=== PATIENT | female | born 1940 | race Caucasian/White ===

== ENCOUNTER 2024-11-11 14:12 | Inpatient (IN) | payer MEDICARE ==
[~2024-11-11] VITALS: Ht 165.1 cm; Wt 63.0 kg
[2024-11-11 14:38] LABS: BASO # 0.0 10^3/uL (0.0-0.2); BASO % 0.3 % (0.0-1.0); EOS # 0.2 10^3/uL (0.0-0.5); EOS % 2.2 % (0.0-3.0); LYMPH # 2.9 10^3/uL (1.5-5.0); LYMPH % 26.7 % (24.0-44.0); MONO # 0.7 10^3/uL (0.0-0.8); MONO % 5.9 % (2.0-8.0); NEUTROPHILS # 7.1 10^3/uL (1.5-8.5); NEUTROPHILS % 64.7 % (36.0-66.0); PLATELET COUNT, AUTOMATED 338 10^3/uL (150-450)
[2024-11-11] MEDS: LIDOCAINE W/EPINEPHrine 1% 20 ML VIAL SC ONE (14:40)
[2024-11-11 14:57] LABS: ETHYL ALCOHOL (ETHANOL) < 0.003 % (0.000-0.010)
[2024-11-11 14:58] LABS: INR 1.0
[2024-11-11 14:59] LABS: ALT/SGPT 17 U/L (7.0-40); AST/SGOT 21 U/L (<34); CALCIUM LEVEL 10.0 MG/DL (8.3-10.6); CARBON DIOXIDE LEVEL 23 MMOL/L (20-31); CHLORIDE LEVEL 104 MMOL/L (98-107); CK-MB VALUE MASS 1.7 NG/ML (<3.6); CPK CREATINE PHOSPHOKINASE 66 U/L (34-145); CREATININE FOR GFR 1.89 MG/DL (0.55-1.30); GLOMERULAR FILTRATION RATE 25.9 (>32); MB/CK RELATIVE INDEX 2.57 (< OR =4); POTASSIUM SERUM 4.5 MMOL/L (3.5-5.1); SODIUM LEVEL 142 MMOL/L (136-145)
[2024-11-11 17:17] LABS: HIV 1&2 SCREEN NEGATIVE (NEGATIVE)
[2024-11-11 17:26] LABS: HEPATITIS C VIRUS ABY INDEX < 0.02 INDEX (<0.8)
[2024-11-11] MEDS ORDERED: ACET-1349 PO (19:51)
[2024-11-11] MEDS ORDERED: B-12100010 PO (19:51)
[2024-11-11] MEDS ORDERED: GABA-1171 PO ×2 (19:51)
[2024-11-11] MEDS ORDERED: MIDO2.5T3 PO (19:51)
[2024-11-11] MEDS ORDERED: MAGN500T12 PO (19:51)
[2024-11-11] MEDS ORDERED: ELIQ2.5T PO (19:51)
[2024-11-11] MEDS ORDERED: LETR2.5T2 PO (19:51)
[2024-11-11] MEDS ORDERED: EZET10TA21 PO (19:51)
[2024-11-11] MEDS ORDERED: VITA1TAB82 PO (19:51)
[2024-11-11] MEDS ORDERED: ATOR80TA59 PO (19:51)
[2024-11-11] MEDS ORDERED: SEMA2PEN SQ (19:51)
[2024-11-11] MEDS ORDERED: PHEN1TAB73 PO (19:51)
[2024-11-11] MEDS ORDERED: LORA-243 PO (19:52)
[2024-11-11] MEDS ORDERED: HOME MED LIST COMPLETE! XX SCH (19:55)
[2024-11-11] MEDS ORDERED: MAALOX 30 ML SUSP *UDC PO PRN (22:25)
[2024-11-11] MEDS ORDERED: traMADol 50 MG TAB PO PRN (22:25)
[2024-11-11] MEDS ORDERED: ACETAMINOPHEN 500 MG TAB PO PRN (22:25)
[2024-11-11] MEDS ORDERED: MOM 30 ML SUSPENSION UDC PO PRN (22:25)
[2024-11-11] MEDS ORDERED: PILL CUTTER 1 EACH XX PRN (22:45)
[2024-11-11] MEDS: LIDOCAINE 2% 5 ML JELLY UROJET TOP ONE (23:00)
[2024-11-12] VITALS (7 sets, daily range): BP systolic 90–148; BP diastolic 45–63; TEMP 97.7–98.9; O2SAT 92–98
[2024-11-12 00:01] LABS: KETONE, URINE AUTO RFX NEGATIVE (NEGATIVE); RBC, URINE AUTO RFX TNTC /HPF (0-3); SQUAM EPITHELIAL CELL UR AURFX 1 /HPF (0-6)
[2024-11-12] MEDS ORDERED: UNRESOLVED CLARIFICATION ENTRY XX SCH (00:01)
[2024-11-12 00:09] LABS: AMPHETAMINES LEVEL URINE NEGATIVE (NEGATIVE); BARBITURATES URINE NEGATIVE (NEGATIVE); BENZODIAZEPINES URINE NEGATIVE (NEGATIVE); CANNABINOIDS URINE NEGATIVE (NEGATIVE); COCAINE METABOLITE URINE NEGATIVE (NEGATIVE); METHADONE URINE NEGATIVE (NEGATIVE); OPIATES URINE NEGATIVE (NEGATIVE); PHENCYCLIDINE URINE NEGATIVE (NEGATIVE)
[2024-11-12] MEDS: APIXABAN 2.5 MG TAB PO SCH (00:17)
[2024-11-12] MEDS: ATORVASTATIN 20 MG TAB PO SCH (00:17)
[2024-11-12] MEDS: PHENAZOPYRIDINE 100 MG TAB PO SCH (00:17)
[2024-11-12] MEDS: GABAPENTIN 300 MG CAP PO SCH (00:17)
[2024-11-12] MEDS: PIPERACILLIN/TAZOBACTAM SOD 4.5 GM in DEXTROSE 5% (D5W) ADV/MINI-BAG 50 ML IV SCH (00:18)
[2024-11-12] MEDS: traMADol 50 MG TAB PO PRN ×2 (00:18→11:17)
[2024-11-12] MEDS: LETROZOLE 2.5 MG TAB PO SCH (00:23)
[2024-11-12] MEDS: EZETIMIBE 10 MG TABLET PO SCH (00:24)
[2024-11-12 00:30] LABS: LEUKOCYTE ESTERASE UR AUTO RFX 3+ (NEGATIVE); NITRITE, URINE AUTO RFX POSITIVE (NEGATIVE); WBC, URINE AUTO RFX 133 /HPF (0-3)
[2024-11-12] MEDS ORDERED: IPRATROPIUM 0.5 MG/ALBUTEROL 2.5 MG INH SOL UD 3 ML NEB PRN (00:35)
[2024-11-12] MEDS ORDERED: ONDANSETRON 4MG 2ML VIAL IV PRN (00:50)
[2024-11-12] MEDS: LR 1,000 ML IV SCH (01:52)
[2024-11-12 05:49] LABS: PLATELET COUNT, AUTOMATED 292 10^3/uL (150-450)
[2024-11-12 06:14] LABS: ALT/SGPT 15.0 U/L (7.0-40); AST/SGOT 22.0 U/L (<34); CALCIUM LEVEL 9.2 MG/DL (8.3-10.6); CARBON DIOXIDE LEVEL 24.0 MMOL/L (20-31); CHLORIDE LEVEL 106.0 MMOL/L (98-107); CREATININE FOR GFR 1.96 MG/DL (0.55-1.30); GLOMERULAR FILTRATION RATE 24.8 (>32); POTASSIUM SERUM 4.7 MMOL/L (3.5-5.1); SODIUM LEVEL 140.0 MMOL/L (136-145)
[2024-11-12] MEDS: MIDODRINE 2.5 MG TAB PO SCH (09:09)
[2024-11-12] MEDS: MAGNESIUM OXIDE 400 MG TAB PO SCH (09:09)
[2024-11-12] MEDS: CYANOCOBALAMIN 500 MCG TAB PO SCH (09:10)
[2024-11-12] MEDS: LORATADINE 10 MG TAB PO SCH (09:10)
[2024-11-12] MEDS: GABAPENTIN 100 MG CAP PO SCH (11:40)
[2024-11-13] VITALS (19 sets, daily range): BP systolic 82–115; BP diastolic 41–62; TEMP 97.5–100; O2SAT 94–98
[2024-11-13] MEDS: LR 1,000 ML IV ONE (01:26)
[2024-11-13 04:46] LABS: PLATELET COUNT, AUTOMATED 210 10^3/uL (150-450)
[2024-11-13 05:21] LABS: ALT/SGPT 12.0 U/L (7.0-40); AST/SGOT 17.0 U/L (<34); CALCIUM LEVEL 8.7 MG/DL (8.3-10.6); CARBON DIOXIDE LEVEL 26.0 MMOL/L (20-31); CHLORIDE LEVEL 108.0 MMOL/L (98-107); CREATININE FOR GFR 2.14 MG/DL (0.55-1.30); GLOMERULAR FILTRATION RATE 22.3 (>32); POTASSIUM SERUM 4.4 MMOL/L (3.5-5.1); SODIUM LEVEL 142.0 MMOL/L (136-145)
[2024-11-13 12:43] LABS: PLATELET COUNT, AUTOMATED 200 10^3/uL (150-450)
[2024-11-13] MEDS: NS (Normal Saline) 0.9% 1,000 ML IV ONE (13:14)
[2024-11-13] MEDS: NS (Normal Saline) 0.9% 1,000 ML IV SCH (14:42)
[2024-11-13] MEDS: MIDODRINE 2.5 MG TAB PO SCH (15:00)
[2024-11-13] MEDS: RAMELTEON 8 MG TAB PO ONE (23:54)
[2024-11-14 03:12] VITALS: BP 141/62; TEMP 97.5; O2SAT 98
[2024-11-14 06:32] LABS: PLATELET COUNT, AUTOMATED 201 10^3/uL (150-450)
[2024-11-14 07:15] LABS: ALT/SGPT 13.0 U/L (7.0-40); AST/SGOT 17.0 U/L (<34); CALCIUM LEVEL 8.6 MG/DL (8.3-10.6); CARBON DIOXIDE LEVEL 24.0 MMOL/L (20-31); CHLORIDE LEVEL 110.0 MMOL/L (98-107); CREATININE FOR GFR 1.73 MG/DL (0.55-1.30); GLOMERULAR FILTRATION RATE 28.8 (>32); POTASSIUM SERUM 4.3 MMOL/L (3.5-5.1); SODIUM LEVEL 145.0 MMOL/L (136-145)
[2024-11-14 07:49] VITALS: BP 91/51; TEMP 97.4; O2SAT 99
[2024-11-14 08:14] VITALS: BP 92/50
[2024-11-14] MEDS ORDERED: CEFP200T PO (11:11)
[2024-11-14] MEDS ORDERED: ACET-907 PO (11:11)
== END 2024-11-14 12:31 | disposition home or self-care (01) | DRG 872 ==
LOC: EDBD 14:12 → M ED 14:12 → EEVIPCON 22:25 → M ED INP 22:25 → M PCU 11-12 00:55
PROVIDERS: ADMIT Student in an Organized Health Care Education/Training Program; ATTEND Internal Medicine
PROC: B246ZZZ Ultrasonography of Right and Left Heart (ICD-10-PCS; principal; 2024-11-12)
DX: A41.9 Sepsis, unspecified organism (principal); N18.4 Chronic kidney disease, stage 4 (severe); H34.8110 Central retinal vein occlusion, right eye, with macular edema; N39.0 Urinary tract infection, site not specified; D62 Acute posthemorrhagic anemia; I48.0 Paroxysmal atrial fibrillation; I95.1 Orthostatic hypotension; J45.909 Unspecified asthma, uncomplicated; Z85.3 Personal history of malignant neoplasm of breast; R33.9 Retention of urine, unspecified; E78.5 Hyperlipidemia, unspecified; G89.29 Other chronic pain; G47.33 Obstructive sleep apnea (adult) (pediatric); S01.81XA Laceration without foreign body of other part of head, initial encounter; W17.89XA Other fall from one level to another, initial encounter; B96.89 Other specified bacterial agents as the cause of diseases classified elsewhere; Y92.89 Other specified places as the place of occurrence of the external cause; Y93.89 Activity, other specified; Y99.8 Other external cause status; Z79.01 Long term (current) use of anticoagulants; Z79.899 Other long term (current) drug therapy; Z88.2 Allergy status to sulfonamides; Z87.440 Personal history of urinary (tract) infections; Z87.442 Personal history of urinary calculi; Z90.49 Acquired absence of other specified parts of digestive tract